=== PATIENT | male | born 1975 | race African-American/Black ===

== ENCOUNTER 2022-12-22 09:26 | Emergency (ER) | payer BC, SELFPAY ==
[2022-12-22] VITALS (61 sets, daily range): BP systolic 81–161; BP diastolic 62–93; PULSE 53–81; RESP 13–36; TEMP 35.1–36.6; O2SAT 20–100
--- NOTE | 2022-12-22 09:15 | DI.RAD_ITS ---
Exam(s) XR PORTABLE CHEST AP EXAM: XR PORTABLE CHEST AP CLINICAL HISTORY: hypothermia. TECHNIQUE: 2D digital imaging was performed. COMPARISON: No exams were available for comparison FINDINGS: Single AP portable view. Heart size is upper normal. The mediastinum is not widened. Lungs are clear. No infiltrates nor obvious pleural effusions. IMPRESSION: No acute pulmonary findings on this single AP portable view of the chest. DATA REPOSITORY: RADIATION DOSE DELIVERED:
--- NOTE | 2022-12-22 09:30 | RT.EKG_ITS ---
APPROVED REPORT Exam: Resting ECG Reason for Exam: eladio Patient Location: E HR:49 bpm ECG Measurements Heart Rate 49 AXIS NH 245 P 47 QRSd 96 QRS -58 QT 428 T 21 QTc 387 Conclusion Sinus bradycardia...rate< 60 Prolonged NH interval...NH >220, V-rate 30- 49 Left anterior fascicular block...axis(240,-40), init forces inf sinus bradycardia, left axis, normal intervals, non ischemic
--- NOTE | 2022-12-22 09:39 | W.ED.GENAD ---
Discharge Plan Disposition Patient Disposition: Home Discharge Details Chief Complaint: Abd Prob Clinical Impression: Diarrhea, Acute viral syndrome ED Provider: Perry Ramey Discharge Instructions Instructions: Acute Diarrhea (ED), Viral Syndrome (ED) Additional Instructions: Please follow-up with your primary care physician. Please stay hydrated at home. Please return to the emergency department with any worsening symptoms. Medical Decision Making 47-year-old male no past medical history, presents with fatigue hypothermia chills and diarrhea over the last day, pulled from a cold home alert oriented interactive however uncomfortable appearing, bradycardic to the 50s, relatively hypotense on arrival normoxic, nonperitoneal. Consider viral syndrome such as COVID versus influenza less also consider serious bacterial infection such as appendicitis cholecystitis bacteremia pneumonia, will obtain labs chest x-ray EKG fluids analgesia antipyretics; disposition pending results imaging and reassessment of symptoms after medication 11: 38 patient resting comfortably feeling much better after fluids and meds. Blood pressures improved. Heart rate is improved, no respiratory stress no chest pain no abdominal cramping or diarrhea here in department. Likely resolving viral syndrome. Home care instructions and return precautions given. With regard to patient's hypothermia on arrival he endorses that he was driving from [place] with the windows down in order to help his lightheadedness. Currently normothermic HPI General Date/Time Provider Initiated Documentation: 12/22/22 09:39. HPI Narrative: 47-year-old male denies past medical history presents with fatigue chills and diarrhea over the last day, noted to be hypothermic to 92 degrees by EMS, fingerstick was normal in the field, persistent bradycardia to the 50s, patient works in a shop, lives at home with his , per EMS the house was cold. No vomiting no chest pain or shortness of breath. No headache. No recent travel Related Data Allergies Allergy/AdvReac Type Severity Reaction Status Date / Time No Known Allergies Allergy Unverified 12/22/22 10:03 General Stated Complaint: Abd Prob MATT: 3 Review of Systems Narrative: Review of Systems Constitutional: Hypothermia, fatigue Eyes: negative ENT: negative Cardiovascular: negative Respiratory: negative Gastrointestinal: Diarrhea : negative Musculoskeletal: negative Skin: negative Neurologic: negative Psych: negative PFSH All Active Problems (Updated 12/22/22 @ 11:39 by Perry Ramey MD) Diarrhea (Acute) Acute viral syndrome (Acute) Social History Smoking/Tobacco Use Status: Never Smoking risk assessment performed?: Yes Alcohol Intake: never Substance use type: does not use
[2022-12-22 09:40] LABS: Abs Immature Grans 0.02 10^3/uL (0.0-0.06); Absolute Basophil Count 0.01 10^3/uL (0.0-0.2); Absolute Eosinophil Count 0.11 10^3/uL (0.0-0.7); Absolute Lymphocyte Count 2.25 10^3/uL (1.2-3.4); Absolute Neutrophil Count 1.84 10^3/uL (1.2-6.7); Basophils % 0.2; Eosinophils % 2.5; HCT 44.2 % (40.0-50.0); HGB 14.8 g/dL (13.5-17.5); Immature Grans % 0.5; Lymphocytes % 50.8; MCH 29.8 pg (27.0-33.0); MCHC 33.5 % (32.0-36.0); MCV 89 fL (80-95); MPV 10.1 fL (8.0-11.0); Monocytes % 4.5; Neutrophils % 41.5; Platelet Count 254 10^3/uL (130-400); RBC 4.96 10^6/uL (4.36-5.78); RDW 12.3 % (11.8-14.1); RDW-SD 40.2 fL; WBC 4.43 10^3/uL (4.4-10.8)
[2022-12-22] MEDS: Lactated Ringers 1,000 ML 1000 ML IV (09:54)
[2022-12-22 10:05] LABS: ALT 31 U/L (16-63); AST 23 U/L (15-37); Albumin 3.8 g/dL (3.4-5.0); Alkaline Phosphatase 59 U/L (46-116); Anion Gap 6.9 mmol/L (3-11); BUN 15 mg/dL (7-18); Bilirubin, Total 0.4 mg/dL (0.2-1.0); CO2 31.1 mmol/L (21.0-32.0); CREATININE 1.1 mg/dL (0.70-1.30); Chloride 102 mmol/L (98-107); Estimated GFR 83.84 (mL/min/1.73m2); Glucose 189 mg/dL (74-106); Potassium 3.8 mmol/L (3.5-5.1); Sodium 140 mmol/L (136-145); TSH (W/Ref FT4) 0.69 uIU/mL (0.36-3.74)
--- NOTE | 2022-12-22 10:12 | NUR.NOTE ---
Nursing Note:Ferdinand Casarez applied
[2022-12-22 10:25] LABS: NT-proBNP 16 pg/mL (<300); Troponin I < 50 ng/L (<or=60)
[2022-12-22 11:20] LABS: COVID-19 PCR Negative (Negative); Influenza A PCR Negative (Negative); Influenza B PCR Negative (Negative); RSV PCR Negative (Negative)
[2022-12-22 11:21] LABS: Source Nasopharynx
[2022-12-22 11:39] LABS: Bilirubin Negative (Negative); Blood Negative (Negative); Clarity Clear (Clear); Glucose Negative (Negative); Ketones Negative (Negative); Leukocyte Esterase Negative (Negative); Nitrite Negative (Negative); Urobilinogen 0.2 mg/dL (Up to 0.2); pH 7.5 (5-8)
== END 2022-12-22 12:00 | disposition home or self-care (01) ==
LOC: ER 12:10
PROVIDERS: Emergency Provider Emergency Medicine
DX: B34.9 Viral infection, unspecified (principal); Z20.822 Contact with and (suspected) exposure to COVID-19; R19.7 Diarrhea, unspecified; R53.83 Other fatigue; R00.1 Bradycardia, unspecified; T68.XXXA Hypothermia, initial encounter; X31.XXXA Exposure to excessive natural cold, initial encounter
CPT/HCPCS: 36415; 80053; 87637; 93005; 96360; 99284; 71045; 81003; 83880; 84443; 84484; 85025; 93010